=== PATIENT | female | born 1980 | race Two or more races ===

== ENCOUNTER 2023-02-11 15:53 | Emergency (ER) | payer MEDICAID ==
[~2023-02-11] VITALS: Ht 160 cm; Wt 75.0 kg
[2023-02-11 16:08] VITALS: BP 113/66; PULSE 57; RESP 18; TEMP 98.1
[2023-02-11 17:24] LABS: BASOPHILS % (AUTO) 0.9 % (0.0-2.0); EOSINOPHILS % (AUTO) 1.7 % (1.0-6.0); HEMATOCRIT 38.8 % (36-46); LYMPHOCYTES # (AUTO) 2.3 K/uL (1.0-4.8); LYMPHOCYTES % (AUTO) 33.3 % (22.0-44.0); MEAN CORPUSCULAR HEMOGLOBIN 29.9 pg (26.0-34.0); MEAN CORPUSCULAR HGB CONC 33.5 G/dL (31.0-37.0); MEAN CORPUSCULAR VOLUME 89 fL (80-100); MONOCYTES # (AUTO) 0.5 K/uL (0.1-1.0); MONOCYTES % (AUTO) 7.6 % (2.0-9.0); NEUTROPHILS # (AUTO) 3.9 K/uL (1.8-7.7); NEUTROPHILS % (AUTO) 56.5 % (40.0-70.0); PLATELET COUNT (AUTO) 355 K/uL (150-450); RED BLOOD CELL COUNT(AUTO) 4.35 MIL/uL (4.00-5.20); RED CELL DISTRIBUTION WIDTH 14.8 % (11.5-14.5)
[2023-02-11 17:39] LABS: CALCIUM, TOTAL 8.5 mg/dL (8.8-10.5); CARBON DIOXIDE 25 mmol/L (22-29); CREATININE 0.74 mg/dL (0.60-1.30); GLOMERULAR FILTR. RATE CALC > 60 mL/min (>60); GLUCOSE,RANDOM 113 mg/dL (70-110)
[2023-02-11 17:42] LABS: ANION GAP 12 mmol/L (8-16); CHLORIDE 101 mmol/L (98-107); POTASSIUM 3.5 mmol/L (3.5-5.1); SODIUM SERUM 138 mmol/L (136-145)
== END 2023-02-11 18:34 | disposition home or self-care (01) ==
LOC: EMS 15:53
DX: R07.9 Chest pain, unspecified (principal)
CPT/HCPCS: 71045; 80048; 84484; 85025; 93005; 99285; 36415-L1; 36415-TC

== ENCOUNTER 2023-05-22 18:38 | Emergency (ER) | payer MEDICAID ==
[~2023-05-22] VITALS: Ht 162.6 cm; Wt 73.6 kg
[2023-05-22 18:39] VITALS: TEMP 98.2
[2023-05-22] MEDS ORDERED: CYCL-448 PO (21:15)
[2023-05-22] MEDS ORDERED: IBUP-1492 PO (21:15)
[2023-05-22 21:25] VITALS: BP 124/66; PULSE 66; RESP 16
== END 2023-05-22 21:26 | disposition home or self-care (01) ==
LOC: EMS 18:39
DX: M54.50 Low back pain, unspecified (principal)
CPT/HCPCS: 99283; Z7502

== ENCOUNTER 2024-07-07 03:12 | Emergency (ER) | payer MEDICAID, OTHER ==
[~2024-07-07] VITALS: Ht 162.6 cm; Wt 71.8 kg
[~2024-07-07 03:12] MED LIST: CYCL-448 PO; IBUP-1492 PO
[2024-07-07 03:24] VITALS: TEMP 98.5
[2024-07-07 05:31] LABS: BASOPHILS % (AUTO) 0.4 % (0.0-2.0); EOSINOPHILS % (AUTO) 0.7 % (1.0-6.0); HEMOGLOBIN 12.6 g/dL (12.0-16.0); LYMPHOCYTES # (AUTO) 1.9 K/uL (1.0-4.8); LYMPHOCYTES % (AUTO) 19.6 % (22.0-44.0); MEAN CORPUSCULAR HEMOGLOBIN 30.1 pg (26.0-34.0); MEAN CORPUSCULAR VOLUME 88 fL (80-100); MONOCYTES # (AUTO) 0.8 K/uL (0.1-1.0); MONOCYTES % (AUTO) 8.3 % (2.0-9.0); NEUTROPHILS # (AUTO) 6.8 K/uL (1.8-7.7); PLATELET COUNT (AUTO) 349 K/uL (150-450); RED BLOOD CELL COUNT(AUTO) 4.19 MIL/uL (4.00-5.20); RED CELL DISTRIBUTION WIDTH 14.9 % (11.5-14.5); WHITE BLOOD COUNT (AUTO) 9.6 K/uL (4.5-11.0)
[2024-07-07] MEDS ORDERED: DOXY-354 PO (05:40)
[2024-07-07 05:44] LABS: ANION GAP 5 mmol/L (8-16); CALCIUM, TOTAL 8.4 mg/dL (8.8-10.5); CARBON DIOXIDE 26 mmol/L (22-29); CHLORIDE 102 mmol/L (98-107); GLOMERULAR FILTR. RATE CALC > 60 mL/min (>60); GLUCOSE,RANDOM 97 mg/dL (70-110); POTASSIUM 4.1 mmol/L (3.5-5.1); SODIUM SERUM 133 mmol/L (136-145); UREA NITROGEN, BLOOD 14 mg/dL (7-18)
[2024-07-07] MEDS: DOXYCYCLINE HYCLATE 100 MG TABLET PO ONE (05:47)
[2024-07-07] MEDS: TraMADol HCL 50 MG TABLET PO ONE (05:47)
[2024-07-07 06:00] VITALS: BP 129/69; PULSE 69; RESP 20; O2SAT 100
[2024-07-07] MEDS ORDERED: IBUP-1492 PO (13:32)
== END 2024-07-07 06:14 | disposition home or self-care (01) ==
LOC: EMS 03:13
DX: N61.0 Mastitis without abscess (principal); N64.4 Mastodynia
CPT/HCPCS: 80048; 84703; 85025; 99283